=== PATIENT | female | born 1975 | race Caucasian/White ===

== ENCOUNTER 2024-06-24 13:03 | Emergency (ER) | payer OTHER, SELFPAY ==
[2024-06-24] VITALS (7 sets, daily range): BP systolic 130–188; BP diastolic 38–74; PULSE 56–71; RESP 16–18; TEMP 36.8–37.1; O2SAT 98–100; BMI 36.4
--- NOTE | ~2024-06-24 | CT_ITS ---
EXAMINATION: CT HEAD WITHOUT CONTRAST (STROKE PROTOCOL) CLINICAL INFORMATION: Stroke protocol. Difficulty speaking, unsteadiness COMPARISON: None available. TECHNIQUE: Contiguous axial imaging was performed from the skull base to vertex without intravenous administration of contrast. This CT examination was performed using dose optimization techniques as appropriate, variously including the following: *Automated exposure control *Adjustment of mA and/or kV according to patient size (this includes techniques or standardized protocols for targeted exams where dose is matched to indication/reason for exam; i.e. extremities or head) *Use of iterative reconstruction technique FINDINGS: There is no acute intra-axial, extra-axial bleed, masses or midline shift there is no acute infarction evolution. There is no edema. The tarn to white matter differentiation is maintained normal. The lateral ventricles are symmetrical in size and configuration without enlargement. Bone windows reveal no calvarial abnormality. There is mild mucoperiosteal thickening bilateral maxillary, ethmoid, left frontal and sphenoid sinuses. The mastoid air cells are well-aerated. The optic globe, optic nerve and the periorbital soft tissues are normal. CT/CT head for STROKE IMPRESSION: No acute intracranial process seen. This critical result was discussed with Donavon in ED at 1: 26 p.M. It was ascertained that the content and urgency of the report was understood at the time of direct communication. Electronically signed by: Figueroa Cassidy MD 06/24/2024 01:28 PM [facility]
--- NOTE | ~2024-06-24 | CT_ITS ---
EXAMINATION: CTA NECK WITH CONTRAST (STROKE) CTA BRAIN WITH CONTRAST (STROKE) CLINICAL INFORMATION: Suspect acute stroke. Assess for major vessel occlusion. Please call report. COMPARISON: None available. TECHNIQUE: CTA of the head and neck was performed in the axial plane from the mediastinum to the skull vertex using 70 mL Omnipaque 350 intravenous contrast. Additional reformatted multiplanar images including maximum intensity projection MIP images are generated on the CT workstation. This CT examination was performed using dose optimization techniques as appropriate, variously including the following: *Automated exposure control *Adjustment of mA and/or kV according to patient size (this includes techniques or standardized protocols for targeted exams where dose is matched to indication/reason for exam; i.e. extremities or head) *Use of iterative reconstruction technique FINDINGS: The degree of stenosis determined by criteria similar to NASCET. Brain: Postcontrast there is no enhancing mass, edema or midline shift. Chest CTA: The thoracic aorta arch is of normal caliber. There is a three-vessel branching of the aortic arch. Neck CTA: Both common carotid arteries, bulb, bifurcation into anterior and external carotid arteries are widely patent. Bilateral internal carotid arteries throughout the neck are widely patent without any thrombus or dissection. The external carotid arteries and the branches are widely patent as well. Both vertebral arteries are patent at the origin with a dominant right vertebral artery is noted Brain CTA: Bilateral petrous, cavernous and supraclinoid ICA segments of are widely patent. There is normal bifurcation of IVC into anterior middle sacral arteries. 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 The MCA bifurcation bilaterally is normal. There is no thrombus, narrowing or aneurysm suspected. Right vertebral artery continues basilar artery. The left vertebral artery terminates into PICA. The basilar artery is small caliber but terminates into posterior cerebral arteries bilaterally. Visualized bilateral cavernous, superior sagittal, transverse, sigmoid sinuses are widely patent. CT/CT angio head neck STROKE IMPRESSION: Unremarkable CTA neck and brain exam. A dominant right vertebral artery continuing as the basilar artery is noted. Electronically signed by: Figueroa Cassidy MD 06/24/2024 02:03 PM [facility] [place]
--- NOTE | 2024-06-24 13:09 | ECG_ITS ---
Test Reason : WEAKNEESS Blood Pressure : / mmHG Vent. Rate : 058 BPM Atrial Rate : 058 BPM P-R Int : 142 ms QRS Dur : 084 ms QT Int : 412 ms P-R-T Axes : -16 042 050 degrees QTc Int : 404 ms Sinus bradycardia Cannot rule out Anterior infarct , age undetermined Abnormal ECG When compared with ECG of 04-OCT-2007 19:59, No significant change was found Referred By: Terrence Raphael Electronically Signed By:MALGORZATA CASAS MD
--- NOTE | 2024-06-24 13:09 | ED_ITS ---
HPI - General Adult General Chief complaint: Stroke Stated complaint: ?STROKE,WEAK,L HEAVY,SLOW SPEECH,DONOVAN,KNWT 1H,-THINN Time Seen by Provider: 06/24/24 13:09 History of Present Illness ED Provider: Donavon HERNANDEZ narrative: The patient is a 49-year-old woman who was at work today when she started to feel fairly abruptly unwell at around 11:30. She developed a headache associated with nausea. She felt like something was just not quite right. She spoke slower than usual. She felt like she was in a fog. 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 The nurse was concerned and called 911. Paramedics called the case in as a possible stroke alert because the patient was speaking slowly and was complaining of a headache. No fever, sweats, chills. The patient has never had an episode like this before. She says that she has a headache, that she feels nauseated, and she feels as if she is in a fog. She says that she has a general feeling that something is not right. The patient has a history of smoking. She has no history of diabetes or hypertension. She does not know about her cholesterol. Related Data Previous Rx's ?Medication ?Instructions ?Recorded azithromycin 250 mg tablet See Rx Instructions PO .COMPLEX #6 05/12/20 tabs prednisone 20 mg tablet 20 mg PO .COMPLEX #18 tabs 05/12/20 metoclopramide HCl 10 mg tablet 10 mg PO Q6H PRN nausea and 06/24/24 vomiting #12 tabs Allergies Allergy/AdvReac Type Severity Reaction Status Date / Time No Known Allergies Allergy Verified 06/24/24 13:31 [No Known Allergies*] Review of Systems 2 Review of Systems: Yes all other systems are reviewed and are negative [facility] Social History Social History Advance Directives: No Advance Directives Information Provided: Yes Do you have a plan to hurt others: No Plan Physical Exam ED Vital Signs: Vital Signs - 24 hr 06/24/24 13:30 06/24/24 13:45 06/24/24 13:58 Temperature 98.5 F 98.2 F Pulse Rate 59 68 68 Respiratory Rate 18 16 Blood Pressure 156/65 H 130/38 L 130/38 L Pulse Oximetry 98 98 Oxygen Delivery Method Room Air Room Air 06/24/24 14:00 06/24/24 14:01 06/24/24 16:09 Temperature 98.7 F Pulse Rate 71 64 56 Respiratory Rate 16 Blood Pressure 147/74 H 168/61 H 166/67 H Pulse Oximetry 98 Oxygen Delivery Method Room Air BMI result Body Mass Index 36.4 Const Other: The patient is a 49-year-old female who was awake and alert. She responded somewhat slowly to questions but her responses were appropriate. She had a somewhat dazed appearance but did not seem acutely ill otherwise. HENMT Other: Face is symmetrical. Mucous membranes moist. The posterior pharynx is unremarkable. Eyes Other: Pupils are round, equal, and reactive to light. No nystagmus appreciated. Visual huynh are intact to confrontation. Neck Other: Neck is supple. Resp Effort & Inspection: normal respiratory effort Auscultation: clear to auscultation bilaterally Cardio Rate: bradycardic Rhythm: regular rhythm Heart sounds: S1 normal heart sound present and S2 normal heart sound present GI Other: Abdomen is soft and nontender Skin Other: Skin is dry and unremarkable Neuro Other: The patient is awake and alert. She responds slightly slowly but appropriately. She is normally oriented. She does not seem frankly confused. Eye movements are intact. No nystagmus. Visual huynh are intact to confrontation. The face is symmetrical. Speech is slightly slow but without aphasia or dysarthria. Strength is intact in her extremities. There is no pronator drift. Finger-nose is normal. Heel-monzon is normal. No obvious truncal ataxia. Extrem Other: No peripheral edema Medications Administered Discontinued Medications Generic Name Dose Route Start Last Admin Trade Name Freq PRN Reason Stop Dose Admin Diphenhydramine HCl 25 mg 06/24/24 14:19 06/24/24 14:28 Diphenhydramine Hcl 50 Mg/Ml Vial IVPUSH 06/24/24 14:20 25 mg ONCE ONE Administration Sodium Chloride 1,000 mls @ 999 mls/hr 06/24/24 14:00 06/24/24 15:49 Ns IV 06/24/24 15:00 Infused .Q1H1M AUSTEN Infusion Iohexol 100 ml 06/24/24 13:29 06/24/24 13:29 Iohexol 350 Mg/Ml 100 Ml Infus..Btl IV 06/24/24 13:30 70 ml ONCE ONE Administration Ketorolac Tromethamine 10 mg 06/24/24 15:26 06/24/24 16:00 Ketorolac Tromethamine 15 Mg/Ml Vial IVPUSH 06/24/24 15:27 Not Given ONCE ONE Metoclopramide HCl 10 mg 06/24/24 14:19 06/24/24 14:28 Metoclopramide Hcl 10 Mg/2 Ml Vial IVPUSH 06/24/24 14:20 10 mg ONCE ONE Administration Medical Decision Making Medical Decision Making [facility] Narrative: The patient is a 49-year-old female who developed acute symptoms at approximately 11:30AM while at work. She presents complaining of a headache associated with nausea. Speech seemed slow. Her blood pressures were elevated. I saw the patient at triage as the paramedics had called this and has a possible code stroke. Given her headache, a somewhat dazed appearance, and her high blood pressure she was made a code stroke. She had a negative noncontrast head CT and subsequently a negative CT angiogram of the head and neck. Her NIH stroke scale is 0. Given her degree of headache and nausea I had some concern that this might represent a migraine phenomenon. She was given IV diphenhydramine and IV metoclopramide. She had essentially complete resolution of her headache and her nausea and her sense of being in a fog. She seemed to feel much much better with this treatment. Given her response to treatment with diphenhydramine and metoclopramide and IV fluids I suspect this is a migraine phenomenon and I think she may be discharged. She should follow up with her PCP. Lab Data 06/24/24 13:14 06/24/24 14:13 Labs: Lab Results 06/24/24 06/24/24 06/24/24 Range/Units 13:11 13:13 13:14 WBC 8.5 (4.8-10.8) X10*3/uL RBC 4.51 (4.20-5.50) X10*6/uL Hgb 13.1 (12.0-16.0) g/dl Hct 39.3 (37.0-47.0) % MCV 87.1 (80.0-98.0) fL MCH 29.0 (27.0-33.0) pg MCHC 33.3 (31.0-35.0) g/dl RDW 13.8 (11.0-16.0) % Plt Count 302 (160-400) X10*3/uL MPV 9.8 (9.4-12.3) fL Immature Gran % (Auto) 0.2 (0.0-0.4) % Neut % (Auto) 52.0 (45-73) % Lymph % (Auto) 33.7 (20-40) % Winkler % (Auto) 7.6 (2-11) % Eos % (Auto) 5.8 H (0-4) % Baso % (Auto) 0.7 (0-2) % Lymph # (Auto) 2.9 (1.2-4.9) X10*3/uL Winkler # (Auto) 0.7 (0.1-1.2) X10*3/uL Eos # (Auto) 0.5 H (0.0-0.4) X10*3/uL Baso # (Auto) 0.1 (0.0-0.2) X10*3/uL Abs Immat Gran (auto) 0.02 (0.00-0.03) X10*3/uL Absolute Neuts (auto) 4.4 (2.0-8.3) x10*3/uL Absolute Nucleated RBC 0.000 (0.0-0.012) X10*3/uL Nucleated RBC % (auto) 0.0 (0.0-0.2) /100WBC PT 10.0 L (10.9-12.4) SEC Whole Blood PT 12.2 (11.1-13.5) sec INR 0.9 (0.9-1.1) Whole Blood INR 1.0 (0.9-1.1) APTT 35.0 (26.0-36.8) SEC Sodium (135-145) mmol/L Potassium (3.3-5.1) mmol/L Chloride (96-108) mmol/L Carbon Dioxide (22-29) mmol/L Anion Gap (12-20) BUN (9-16) mg/dL Creatinine (0.5-1.4) mg/dL Estim Creat Clear Calc Estimated GFR POC Glucose 78 (60-115) mg/dL Random Glucose (60-115) mg/dL Calcium (8.4-10.2) mg/dL Troponin I High Sens < 2.7 (<3.5-17.0) ng/L Triglycerides (<150) mg/dL Cholesterol (<200) mg/dL LDL Cholesterol, Calc (<100) mg/dL HDL Cholesterol (>40) mg/dL Urine Color Urine Appearance Urine pH (5.0-9.0) Ur Specific [place] (1.005-1.025) Urine Protein (Neg-Trace) mg/dL Urine Glucose (UA) (Negative) mg/dL Urine Ketones (Negative) mg/dL Urine Blood (Negative) Urine Nitrite (Negative) Ur Leukocyte Esterase (Negative) Ethyl Alcohol mg/dL Influenza Type A (PCR) (Negative) Influenza Type B (PCR) (Negative) RSV RNA Qual (PCR) (Negative) SARS-CoV-2 RNA (RT-PCR) (Negative) 06/24/24 06/24/24 06/24/24 Range/Units 14:13 15:07 15:10 WBC (4.8-10.8) X10*3/uL RBC (4.20-5.50) X10*6/uL Hgb (12.0-16.0) g/dl Hct (37.0-47.0) % MCV (80.0-98.0) fL MCH (27.0-33.0) pg MCHC (31.0-35.0) g/dl RDW (11.0-16.0) % Plt Count (160-400) X10*3/uL MPV (9.4-12.3) fL Immature Gran % (Auto) (0.0-0.4) % Neut % (Auto) (45-73) % Lymph % (Auto) (20-40) % Winkler % (Auto) (2-11) % Eos % (Auto) (0-4) % Baso % (Auto) (0-2) % Lymph # (Auto) (1.2-4.9) X10*3/uL Winkler # (Auto) (0.1-1.2) X10*3/uL Eos # (Auto) (0.0-0.4) X10*3/uL Baso # (Auto) (0.0-0.2) X10*3/uL Abs Immat Gran (auto) (0.00-0.03) X10*3/uL Absolute Neuts (auto) (2.0-8.3) x10*3/uL Absolute Nucleated RBC (0.0-0.012) X10*3/uL Nucleated RBC % (auto) (0.0-0.2) /100WBC PT (10.9-12.4) SEC Whole Blood PT (11.1-13.5) sec INR (0.9-1.1) Whole Blood INR (0.9-1.1) APTT (26.0-36.8) SEC Sodium 142 (135-145) mmol/L Potassium 4.0 (3.3-5.1) mmol/L Chloride 107 (96-108) mmol/L Carbon Dioxide 28 (22-29) mmol/L Anion Gap 11 L (12-20) BUN 17 H (9-16) mg/dL Creatinine 0.76 (0.5-1.4) mg/dL Estim Creat Clear Calc 95.0 Estimated GFR > 60 POC Glucose 86 (60-115) mg/dL Random Glucose 89 (60-115) mg/dL Calcium 9.1 (8.4-10.2) mg/dL Troponin I High Sens (<3.5-17.0) ng/L Triglycerides 106 (<150) mg/dL Cholesterol 190 (<200) mg/dL LDL Cholesterol, Calc 112 H (<100) mg/dL HDL Cholesterol 57 (>40) mg/dL Urine Color Yellow Urine Appearance Clear Urine pH 6.5 (5.0-9.0) Ur Specific [place] 1.010 (1.005-1.025) Urine Protein Negative (Neg-Trace) mg/dL Urine Glucose (UA) Negative (Negative) mg/dL Urine Ketones Negative (Negative) mg/dL Urine Blood Negative (Negative) Urine Nitrite Negative (Negative) Ur Leukocyte Esterase Negative (Negative) Ethyl Alcohol < 10 mg/dL Influenza Type A (PCR) NEGATIVE (Negative) Influenza Type B (PCR) NEGATIVE (Negative) RSV RNA Qual (PCR) NEGATIVE (Negative) SARS-CoV-2 RNA (RT-PCR) POSITIVE A (Negative) Independent Interpretation I performed an independent interpretation of an: EKG Interpretation: EKG at 13:38 shows sinus bradycardia at 58 beats per minute. No significant change from previous EKG. Discharge Plan Discharge Clinical Impression: Migraine headache Patient Disposition: Home, Self-Care Instructions: Migraine Headache (ED) Additional Instructions: I believe the symptoms you experienced were most likely a migraine headache. Please rest and take it easy tonight. You may use acetaminophen (Tylenol) or ibuprofen for any residual discomfort. I would eat light tonight. You may drink clear fluids. I have sent a prescription to your pharmacy for a medication for nausea that you may use as needed if you have any ongoing nausea at home. Return to the emergency room if significantly worse. Prescriptions: New metoclopramide HCl 10 mg tablet 10 mg PO Q6H PRN (Reason: nausea and vomiting) Qty: 12 0RF No Action prednisone 20 mg tablet 20 mg PO .COMPLEX Qty: 18 0RF Rx Instructions: 20 mg PO 3 p.o. daily for 3 days followed by 2 p.o. daily for 3 days followed by 1 p.o. daily for 3 days; azithromycin 250 mg tablet See Rx Instructions PO .COMPLEX Qty: 6 0RF Rx Instructions: take 500 mg today (day 1), then 250 mg for 4 days (days 2-5) PO Referrals: [facility] [place] [facility] Group] Stand Alone Forms: Work/School Release Interventions: ED Discharge Assessment Last Done: 06/24/24 16:09 Discharge Date/Time: 06/24/24 16:25 Print Language: Albanian
[2024-06-24 13:18] LABS: MANUAL DIFF FLAG NO
[2024-06-24 13:20] LABS: Prothrombin Time Whole Bld POC 12.2 sec (11.1-13.5)
[2024-06-24 13:21] LABS: Basophils Absolute Auto 0.1 X10*3/uL (0.0-0.2); Basophils Percent Auto 0.7 % (0-2); Eosinophils Absolute Auto 0.5 X10*3/uL (0.0-0.4); Eosinophils Percent Auto 5.8 % (0-4); Hematocrit 39.3 % (37.0-47.0); Hemoglobin 13.1 g/dl (12.0-16.0); Imm Gran Abs Auto 0.02 X10*3/uL (0.00-0.03); Imm Gran Pct Auto 0.2 % (0.0-0.4); Lymphocytes Absolute Auto 2.9 X10*3/uL (1.2-4.9); Lymphocytes Percent Auto 33.7 % (20-40); Mean Corpuscular HGB Conc 33.3 g/dl (31.0-35.0); Mean Corpuscular Volume 87.1 fL (80.0-98.0); Mean Platelet Volume 9.8 fL (9.4-12.3); Monocytes Absolute Auto 0.7 X10*3/uL (0.1-1.2); Monocytes Percent Auto 7.6 % (2-11); Neutrophils Absolute Auto 4.4 x10*3/uL (2.0-8.3); Platelet Count 302 X10*3/uL (160-400); Red Blood Count 4.51 X10*6/uL (4.20-5.50); Red Cell Distribution Width 13.8 % (11.0-16.0); White Blood Count 8.5 X10*3/uL (4.8-10.8)
[2024-06-24 13:21] LABS: Glucose, Whole Blood 78 mg/dL (60-115)
[2024-06-24 13:24] LABS: INTERNATIONAL NORM RATIO 0.9 (0.9-1.1)
[2024-06-24 13:27] LABS: Stroke Lab Use COMPLETE
[2024-06-24] MEDS: iohexoL 350 MG/ML 100 ML INFUS..BTL IV (13:29)
[2024-06-24 13:45] LABS: Troponin-I High Sensitivity < 2.7 ng/L (<3.5-17.0)
--- NOTE | 2024-06-24 14:16 | MHC.STROKE ---
Called to ED for Stroke Alert Pt awake, alert and oriented x 4. Reports feeling weak on the left side and not feeling right . States that she felt dizzy Patient reporting that she was at school and wasn't feeling right. LKWT 1130. States that her left arm felt heavy and she was dizzy. Attempted to drink water and sit down however symptoms did not go away. Pt went to the nurse's office and was told her HR was 51. EMS called. In ED, Pt remained A/O x 4. Hand grasp equal bilaterally, no facial droop appreciated, tongue midline Pt moving legs freely and with equal strength. Speaking in full clear sentences although speech seems slower than normal. CT scans completed. orthostatic vital signs completed. Dr. Raphael at bedside for NIH scale and assessment Pt ambulated in room, slow gait, slightly unsteady. Pt is able to correct herself. Swallow evaluation completed by this RN. Pt passed. Stroke education reviewed with patient and her . All questions answered. Dr. Raphael spoke with Dr. Chow. TNK not indicated at this time. Will continue to assist as needed.
--- NOTE | 2024-06-24 14:22 | MHC.STROKE ---
Risk factors discussed with patient by this RN and Dr. Raphael
[2024-06-24] MEDS: 0.9 % Sodium Chloride 1,000 ML 999 ML IV (14:23)
[2024-06-24] MEDS: diphenhydrAMINE HCL 50 MG/ML VIAL 25 MG IVPUSH (14:28)
[2024-06-24] MEDS: Metoclopramide HCl 10 MG/2 ML VIAL IVPUSH (14:28)
[2024-06-24 14:42] LABS: Anion Gap 11 (12-20); Blood Urea Nitrogen 17 mg/dL (9-16); Calcium 9.1 mg/dL (8.4-10.2); Carbon Dioxide 28 mmol/L (22-29); Chloride 107 mmol/L (96-108); Cholesterol 190 mg/dL (<200); Estimated Glomerular Filt Rate > 60; Ethanol < 10 mg/dL; Glucose Random 89 mg/dL (60-115); HDL Cholesterol 57 mg/dL (>40); LDL Cholesterol Calculated 112 mg/dL (<100); Sodium 142 mmol/L (135-145); Triglycerides 106 mg/dL (<150)
[2024-06-24 15:05] LABS: Influenza A PCR NEGATIVE (Negative); Influenza B PCR NEGATIVE (Negative); Resp Syncy Virus RNA Qual PCR NEGATIVE (Negative); SARS COV2 PCR INHOUSE POSITIVE (Negative)
[2024-06-24 15:14] LABS: Glucose, Whole Blood 86 mg/dL (60-115)
[2024-06-24 15:17] LABS: Appearance Urine Clear; Color Urine Yellow; Glucose Urine UA Negative (Negative); Leukocyte Esterase Urine Negative (Negative); Nitrite Urine Negative (Negative); PH 6.5 (5.0-9.0); Urine Blood Negative (Negative); Urine Ketones Negative (Negative); Urine Protein Negative (Neg-Trace)
== END 2024-06-24 16:25 | disposition home or self-care (01) ==
PROVIDERS: Emergency Provider Emergency Medicine
DX: G43.909 Migraine, unspecified, not intractable, without status migrainosus (principal); R11.2 Nausea with vomiting, unspecified; R00.1 Bradycardia, unspecified; R94.31 Abnormal electrocardiogram [ECG] [EKG]; Z03.818 Encounter for observation for suspected exposure to other biological agents ruled out; Z87.891 Personal history of nicotine dependence; Z51.81 Encounter for therapeutic drug level monitoring; Z79.899 Other long term (current) drug therapy
CPT/HCPCS: 0241U; 36415; 70450; 70496; 70498; 80048; 80061; 80307; 81003; 82947; 84484; 85025; 85610; 85730; 93005; 96361; 96374; 96375; 99284; J1200; J2765; Q9967

== ENCOUNTER → 2024-06-24 13:09 | Outpatient (BNV) | payer OTHER, SELFPAY | PROVIDERS: Emergency Provider Emergency Medicine; Visit Provider Radiology Diagnostic Radiology | DX: I63.9 Cerebral infarction, unspecified (principal) | CPT/HCPCS: 70450; 70496 ==

== ENCOUNTER → 2024-06-24 13:09 | Outpatient (BNV) | payer OTHER, SELFPAY | PROVIDERS: Emergency Provider Emergency Medicine; Visit Provider Internal Medicine Cardiovascular Disease | DX: R94.31 Abnormal electrocardiogram [ECG] [EKG] (principal) | CPT/HCPCS: 93010 ==

== ENCOUNTER 2024-08-09 11:56 | Outpatient (AMB) | payer OTHER, SELFPAY ==
--- NOTE | 2024-08-09 12:00 | MHC.OFFVIS ---
Intake Visit Reasons: Hypertension Allergies No Known Allergies [No Known Allergies*] Allergy (Verified 06/24/24 13:31) Coding
--- NOTE | 2024-08-09 12:04 | A.OFFPC_ITS ---
Vital Signs 08/09/24 12:18 Height 5 ft 3 in Weight 199 lb BMI 35.2 BP 124/80 Blood Pressure Location Rt brachial Position Sitting Respiration 15 Pulse 72 Pulse Source Pulse Oximeter Temp 98.5 F Temp Source Oral Pulse Oximetry (%) 98 Oxygen Delivery Method Room Air Intake Visit Reasons: Hypertension Intake Note: Pt is here today as a New patient to re-est care/Physical Exam Allergies No Known Allergies [No Known Allergies*] Allergy (Verified 08/09/24 12:35) Medication List - Last Reconciled 08/09/24 by Barb Moreno MD No Known Home Meds Tobacco use date assessed: 08/09/24 Dental Screening Dental Screen Date: 08/09/24 Did you have a dental visit in the last 12 months?: Yes Did you have a dental problem in the last 6 months where you did not have access to dental care?: No Was dental information given to patient?: Patient has dentist HPI Hypertension HPI Details 49-year-old lady with history of hyper h ere to reestablish care, and for physical exam. She does not take any medications at present time. Stays active and tries to adhere to a healthy diet. She is overdue to get her colon cancer screening . Goes to [facility] for routine Pap and pelvic exam, up-to-date with her last mammogram done at [facility] in 04/2024. Complains of intermittent pain in her right hip joint, and pain in dose of right foot. This is aggravated walking. No History of trauma. Has not taken anything for the pain Current cigarette smoker with no desire to quit at present time. [facility] Medical History (Updated 08/09/24 @ 13:01 by Barb Moreno MD) Chronic right hip pain Chronic toe pain, right foot Surgical History (Updated 08/16/24 @ 00:33 by Barb Moreno MD) No pertinent past surgical history Family History Mother Substance use disorder Sister Substance use disorder Social History Housing: House Patient Tobacco Use Status: Current everyday Tobacco user e-Cigarette/Vaping Use: Never Used service: No Current occupational status: employed Cognitive needs: No Hearing needs: No Vision needs: Yes Female Reproductive History Menstrual Other: Goes to [facility], sees Dr. Cedillo for her routine Pap and pelvic exam and orders also her mammogram Questionnaire PHQ-9 Over the last 2 weeks, how often have you been bothered by any of the following problems? 1. Little interest or pleasure in doing things: not at all 2. Feeling down, depressed, or hopeless: not at all 3. Trouble falling or staying asleep, or sleeping too much: not at all 4. Feeling tired or having little energy: not at all 5. Poor appetite or overeating: not at all 6. Feeling bad about yourself - or that you are a failure or have let yourself or your family down: not at all 7. Trouble concentrating on things, such as reading the newspaper or watching television: not at all 8. Moving or speaking so slowly that other people could have noticed. Or the opposite - being so fidgety or restless that you have been moving around a lot more than usual: not at all 9. Thoughts that you would be better off or of hurting yourself in some way: not at all Total score: 0 Depression Screening Interpretation: Negative Depression Screening Done: Yes 92790 - PHQ-9 Billing: Yes Source: Developed by Drs. Tomás Benavides, Nicki Davies, David Herrera and colleagues, with an educational geovani from [employer]. Thrive Questionnaire Date Thrive assessed: 08/09/24 I am a: Patient What is your living situation today?: I have a steady place to live Within the past 12 months, did the food you bought not last and you didn't have the money to get more?: Never true Within the past 12 months, did you worry whether your food would run out before you got money to buy more?: Never true Do you have trouble paying for medicines?: No Do you have trouble getting transportation to medical appointments?: No Do you have trouble paying your heating and electricity bill?: No Do you have trouble taking care of your child, family member or friend?: No Do you have trouble with day-to-day activities such as bathing, preparing meals, shopping, managing finances, etc.?: No Are you currently unemployed and looking for a job?: No Are you interested in more education?: No Please select the resources that you would like help with: None Currently or been in a relationship where the following occur: No concerns reported THRIVE Score: 0 AUDIT C Alcohol Use Questionnaire (AUDIT-C) 1. How often do you have a drink containing alcohol?: 2-4 times a month 2. How many drinks containing alcohol do you have on a typical day when you are drinking?: 3 or 4 3. How often do you have six or more drinks on one occasion?: Never Total Score: 3 PAUL-7 AMB Questionnaire PAUL-7 Date PAUL - 7 assessed: 08/09/24 Feeling nervous, anxious, or on edge: 0 = Not at all Not being able to stop or control worryin = Not at all Worrying too much about different things: 0 = Not at all Trouble relaxin = Not at all Being so restless that it is hard to sit still: 0 = Not at all Becoming easily annoyed or irritable: 0 = Not at all Feeling afraid as if something awful might happen: 0 = Not at all Total PAUL-7 score (0-4 normal; 5-9 mild; 10-14 moderate; 15-21 severe): 0 Source: Developed by Drs. Tomás Benavides, Nicki Davies, David Herrera and colleagues, with an educational geovani from [employer]. PAUL-7 Assessment Billing PAUL-7 Assessment Tool: PAUL-7 Assessment 13301 Review of Systems Const Denies body aches, Denies fatigue, Denies fever(s), Denies headache(s) and Denies weakness Eyes Denies change in vision ENT Denies dizziness, Denies headache(s), Denies nasal congestion, Denies nasal discharge and Denies sore throat Card Denies chest pain, Denies lightheadedness, Denies palpitations and Denies dyspnea Resp Denies chest congestion, Denies cough, Denies dyspnea and Denies wheezing GI Denies abdominal pain, Denies change in bowel habits and Denies heartburn Denies hematuria, Denies urinary frequency, Denies dysuria and Denies urinary urgency Musc Reports as per HPI Skin/Breast Denies breast pain, Denies breast mass, Denies lesions and Denies rash Neuro Denies dizziness, Denies headache(s) and Denies weakness Psych Reports no additional complaints Endo Denies fatigue, Denies polydipsia, Denies polyuria and Denies palpitations Simeon/Lymph Denies easy bruising Aller/Immun Denies seasonal rhinorrhea and Denies wheezing Physical exam (Primary Care) Vital Signs: Last Vital Signs Temp 98.5 F 08/09/24 12:18 Pulse 72 08/09/24 12:18 Resp 15 08/09/24 12:18 BP 124/80 08/09/24 12:18 Pulse Ox 98 08/09/24 12:18 Oxygen Delivery Method Room Air 08/09/24 12:18 BMI result Body Mass Index 35.2 Tobacco/Smoking Status: Tobacco use Status Tobacco use date assessed 08/09/24 08/09/24 12:21 Patient Tobacco Use Status Current everyday Tobacco 08/09/24 12:21 e-Cigarette/Vaping Use Never Used 08/09/24 12:21 Are you ready to quit: No Depression Screening Interpretation: Negative Thrive Assessment: Date of Thrive Assessment Date Thrive assessed 08/09/24 08/09/24 12:24 Currently or been in a relationship where the following occur: No concerns reported Advance Care Planning discussion: Completed/Scanned Date of discussion: 08/09/24 Who was present: Patient Forms completed: Health Care Proxy Time spent: 16-45 minutes Actual minutes spent: 3 Const General: no acute distress and alert Orientation/consciousness: patient oriented x3 HENMT Head: Yes normocephalic Ears: external ears normal, TM's normal bilaterally and EAC's normal General nose exam: Normal external nose present Face and sinus: Yes face symmetric Mouth: Normal oral and palatal mucosa present, oropharynx normal and moist mucous membranes Eyes General: appearance normal, both eyes and all related structures Eyelids: Yes eyelids normal Conjunctivae: conjunctivae normal Sclerae: sclerae normal Pupils: Equal, round and reactive pupils present EOM: EOMs intact bilaterally Neck Neck: Yes full ROM, Yes no lymphadenopathy and Yes supple Thyroid: Thyroid normal Chest Chest palpation & inspection: normal inspection of the chest Resp Effort & Inspection: normal respiratory effort and able to speak in complete sentences Auscultation: clear to auscultation bilaterally Cardio Rate: regular rate Rhythm: regular rhythm Heart sounds: S1 normal heart sound present and S2 normal heart sound present GI Palpation (GI): Soft to palpation, nontender, no guarding and no masses Auscultation: normal bowel sounds General: Yes no CVA tenderness Back/Spine/Pelvis Back: no CVA tenderness and No back tenderness Skin General skin exam: no rashes or lesions noted Neuro General: patient oriented x3, gait normal, moves all extremities, Normal light touch and pain sensation, no focal motor deficits and CN's II-XI intact bilaterally Cranial nerves: Yes Equal, round and reactive pupils present Cognition (Neuro): normal cognition Gait exam (Neuro): Normal gait present Motor exam (neuro): 5/5 motor strength present throughout Extrem General: Yes normal to inspection, Yes full ROM, Yes no joint enlargement, Yes no pedal edema and Yes normal gait Right lower extremity: foot Details: normal to inspection and abnormal ROM of toe Psych Appearance: grossly normal and well kempt Mental Status: mental status grossly normal Speech and movement: Normal speech and movement present Affect: normal affect Attitude: cooperative Thought process: Normal thought process present Thought content: Normal thought content present Insight: Good insight present (Psych) Judgement: Good judgement present (Psych) Coding Level of Care Code Est Pt Prev Care 40-64y(17942) Diagnoses Annual visit for general adult medical examination with abnormal findings Z00.01 Encounter for counseling regarding advance directives Z71.89 Encounter for screening for malignant neoplasm of colon Z12.11 Chronic toe pain, right foot M79.674; G89.29 Chronic right hip pain M25.551; G89.29 Additional Codes PHQ-9 - 33857 - PHQ-9 Billing: Yes ([id number]) PAUL-7 Assessment Billing - PAUL-7 Assessment Tool: PAUL-7 Assessment 85067 ([id number]) Vital Signs *Quality* - Advance Care Planning discussion: Completed/Scanned ([id number]) Vital Signs *Quality* - Time spent: 16-45 minutes ([id number]) Assessment & Plan Assessment & Plan (1) Annual visit for general adult medical examination with abnormal findings: Code(s): Z00.01 - Encounter for general adult medical examination with abnormal findings Plan: Reviewed recent fasting labs which showed lipids, fasting glucose, renal function CBC enzymes within limits. Continue with regular dental visit every 6 months and regular eye exams, at least every 2 years. Take adequate calcium in diet and vitamin-D 3 at 2000 IU per cap once a day, in addition to weight- bearing exercises to help maintain good muscle tone and weight control. She goes to [facility] at [facility], due for her cervical cancer screening and pelvic exam with Dr. Cedillo. Up-to-date with her breast cancer screening, last mammogram was done 04/30/2024 with benign finding. Just had COVI D infection 06/24/2024, gets yearly flu shot and COVID vaccine, deferred Tdap recommendation . Referred for her baseline colonoscopy screening to [facility] (2) Encounter for counseling regarding advance directives: Code(s): Z71.89 - Other specified counseling Plan: Initiated the conversation about Advanced Directives. Advanced Directives help patients prepare for current and future decisions about their medical treatment and place of care. Discussed with patient that it is a process where a patients current condition and prognosis are reviewed, their wishes for information regarding their illness are elicited, and likely medical dilemmas are presented and options discussed. Healthcare proxy form completed today The form can be amended as needed, reviewed yearly and make changes as needed (3) Encounter for screening for malignant neoplasm of colon: Code(s): Z12.11 - Encounter for screening for malignant neoplasm of colon Plan: Referred to GI clinic at [place] for her initial colon cancer screening, has positive family history for colon cancer, mother was diagnosed in her 70s with colon cancer (4) Chronic toe pain, right foot: Code(s): M79.674 - Pain in right toe(s); G89.29 - Other chronic pain Category: Medical Plan: X-ray of right toe ordered, referred to [facility] for further evaluation management (5) Chronic right hip pain: Code(s): M25.551 - Pain in right hip; G89.29 - Other chronic pain Category: Medical Plan: X-ray of right hip ordered, referred for physical therapy. If no improvement of symptoms will order an MRI of right hip Orders: Orders XR foot RT min 3V 08/13/24 G89.29 - Other chronic pain, M79.674 - Pain in right toe(s) XR hip RT min 2V 08/13/24 G89.29 - Other chronic pain, M25.551 - Pain in right hip PT Evaluation and Treatment 08/09/24 G89.29 - Other chronic pain, M25.551 - Pain in right hip Referrals Gastroenterology Referral Z00.01 - Encounter for general adult medical examination with abnormal findings, Z12.11 - Encounter for screening for malignant neoplasm of colon, Z71.89 - Other specified counseling Podiatry Referral G89.29 - Other chronic pain, M79.674 - Pain in right toe(s)
[2024-08-09 12:18] VITALS: BP 124/80; PULSE 72; RESP 15; TEMP 36.9; O2SAT 98; BMI 35.2
== END 2024-08-09 13:15 | disposition home or self-care (01) ==
PROVIDERS: Visit Provider Internal Medicine
DX: Z00.01 Encounter for general adult medical examination with abnormal findings (principal); Z71.89 Other specified counseling; Z12.11 Encounter for screening for malignant neoplasm of colon; M79.674 Pain in right toe(s); G89.29 Other chronic pain; M25.551 Pain in right hip

== ENCOUNTER → 2024-08-09 11:56 | Outpatient (BNVA) | payer OTHER, SELFPAY | PROVIDERS: Visit Provider Internal Medicine | DX: Z00.01 Encounter for general adult medical examination with abnormal findings (principal); G89.29 Other chronic pain; M79.674 Pain in right toe(s); M25.551 Pain in right hip; Z71.89 Other specified counseling | CPT/HCPCS: 96127 ==

== ENCOUNTER 2024-08-13 13:53 | Outpatient (REF) | payer OTHER, SELFPAY ==
--- NOTE | ~2024-08-13 | XR_ITS ---
EXAMINATION: XR HIP 2 OR MORE VIEWS RIGHT HISTORY: M25.551 - Pain in right hip COMPARISON: There are no prior studies for comparison. FINDINGS: Two views of the right hip are submitted. Osseous mineralization is normal. There is no fracture or dislocation. The joint space is maintained. The soft tissues are unremarkable. XR/XR hip RT min 2V IMPRESSION: Unremarkable examination of the right hip. Electronically signed by: Tomás Hart MD 08/17/2024 08:27 AM [facility]ANIEL
--- NOTE | ~2024-08-13 | XR_ITS ---
EXAMINATION: XR FOOT 3 OR MORE VIEWS RIGHT HISTORY: M79.674 - Pain in right toe(s) COMPARISON: There are no prior studies available for comparison. FINDINGS: Three views of the right foot are submitted. Osseous mineralization is normal. There is no fracture or dislocation. The joint spaces are preserved. There is a moderate-sized plantar calcaneal spur. The soft tissues are unremarkable. XR/XR foot RT min 3V IMPRESSION: Moderate-sized plantar calcaneal spur. Otherwise unremarkable examination of the right foot. Electronically signed by: Tomás Hart MD 08/17/2024 08:26 AM [facility]
== END 2024-08-13 13:54 | disposition home or self-care (01) ==
LOC: HO.HMGCX 13:53
PROVIDERS: PCP Internal Medicine; Visit Provider Internal Medicine
DX: M79.674 Pain in right toe(s) (principal); M25.551 Pain in right hip; G89.29 Other chronic pain
CPT/HCPCS: 73502; 73630

== ENCOUNTER → 2024-08-13 13:56 | Outpatient (BNV) | payer OTHER, SELFPAY | PROVIDERS: PCP Internal Medicine; Visit Provider Radiology Diagnostic Radiology | DX: M77.31 Calcaneal spur, right foot (principal); M25.551 Pain in right hip | CPT/HCPCS: 73502; 73630 ==

== ENCOUNTER 2024-12-23 14:56 | Outpatient (AMB) | payer OTHER, SELFPAY ==
--- NOTE | 2024-12-23 14:57 | MHC.OFFVIS ---
Vital Signs 12/23/24 15:17 Height 5 ft 3 in Weight 200 lb BMI 35.4 BP 142/78 H Blood Pressure Location Rt brachial Position Sitting Pulse 82 Pulse Source Pulse Oximeter Pulse Oximetry (%) 95 Oxygen Delivery Method Room Air Intake Visit Reasons: Colonoscopy Screening Intake Note: New pt for initial colo screening. CC; Pt denies any GI sx or concerns at this time. Heel Lift Gouger Required: No Accompanied by: Self / Same As Patient Allergies No Known Allergies (No Known Allergies*) Allergy (Verified 12/23/24 15:00) HPI HPI Colonoscopy Screening: Details: 49-year-old female here for preprocedural meeting to discuss a screening colonoscopy. She is referred by Barb Moreno. PMX Hypertension Chronic right hip pain History of L1 compression fracture * SURGICAL HISTORY section Tonsillectomy Lumbar discectomy L5-S1 * ALLERGIES: NKDA * [facility] LABS: Needs chem panel TODAY'S VISIT This her first colonoscopy. Her mother of CRC at age 71. She had trouble with bloating that resolved with a probiotic and fiber supplement, no upper GI problems. She denies any cardiac or respiratory problems. There are no prior problems with anesthesia or sedation. No ID problems. Her mother of CRC at age 71. [facility] Medical History Chronic right hip pain Chronic toe pain, right foot Surgical History History of myringotomy History of section Hx of tonsillectomy Family History Mother Substance use disorder Colon cancer Sister Substance use disorder Social History (System 09/21/24 @ 12:56 by Carol Sifuentes) Housing: House Patient Tobacco Use Status: Current everyday Tobacco user e-Cigarette/Vaping Use: Never Used service: No Current occupational status: employed Cognitive needs: No Hearing needs: No Vision needs: Yes Review of Systems Const Denies fatigue, Denies fever(s), Denies night sweats, Denies poor appetite and Denies weight loss Eyes Reports requires corrective lenses ENT Reports Normal hearing present, Denies dental pain, Denies dysphagia, Denies hearing loss, Denies mouth pain, Denies odynophagia, Denies throat swelling, Denies tongue swelling and Reports other (Dentition adequate) GI Details: Denies abdominal pain, Denies melena, Denies bloating, Denies hematochezia, Denies constipation, Denies GI cramping, Denies dysphagia, Denies excessive flatus, Denies early satiety, Denies heartburn, Denies diarrhea, Denies nausea, Denies odynophagia, Denies vomiting and Denies hematemesis Skin/Breast Denies pruritus, Denies lesions, Denies rash and Denies jaundice Neuro Reports Normal hearing present and Denies Abnormal speech present Endo Denies fatigue Aller/Immun Denies throat swelling and Denies tongue swelling Physical Exam Vital Signs: Last Vital Signs Pulse 82 12/23/24 15:17 BP 142/78 H 12/23/24 15:17 Pulse Ox 95 12/23/24 15:17 Oxygen Delivery Method Room Air 12/23/24 15:17 BMI result Body Mass Index 35.4 Const General: cooperative, no acute distress, well developed and well groomed Nutritional Appearance: well nourished, obese and overweight Orientation/consciousness: oriented to person, oriented to place and oriented to time Limitations: No language barrier, ambulation with cane, ambulation with walker and wheelchair HEENT Head: Yes normocephalic and Yes atraumatic Eyes General: appearance normal, both eyes and all related structures Pupils: Equal, round and reactive pupils present Neck Neck: Yes normal visual inspection and Yes no lymphadenopathy Thyroid: Thyroid normal Resp Effort & Inspection: normal respiratory effort and able to speak in complete sentences Auscultation: clear to auscultation bilaterally Cardio Rate: regular rate Rhythm: regular rhythm Heart sounds: Normal, physiologic split S2 sound present Peripheral pulses: radial pulses present and posterior tibial pulses present GI Inspection: No distended, Yes Abdominal panniculus present and Yes obesity Palpation (GI): Soft to palpation, nontender, no guarding, not rigid and No hepatosplenomegaly present Percussion: Yes normal to percussion Auscultation: normal bowel sounds Rectal Exam - Female: deferred Abdomen image:  1. surgical scar Skin General skin exam: no rashes or lesions noted, turgor normal, skin not dry, no jaundice, No spider nevi and no striae Rashes: no rashes Nails: normal Neuro General: oriented to person, oriented to place and oriented to time Cranial nerves: Yes Equal, round and reactive pupils present and Yes Normal hearing present Speech: No Abnormal speech present Extrem General: Yes normal to inspection, No clubbing, No cyanosis and No edema Psych Appearance: grossly normal and well kempt Mental Status: mental status grossly normal Speech and movement: Normal speech and movement present Affect: normal affect Attitude: cooperative Thought process: Normal thought process present and not confabulating Thought content: Normal thought content present Insight: Good insight present (Psych) Judgement: Good judgement present (Psych) Assessment & Plan Assessment & Plan (1) Pre-op examination: Code(s): Z01.818 - Encounter for other preprocedural examination Category: Medical Plan This her first colonoscopy. Her mother of CRC at age 71. She had trouble with bloating that resolved with a probiotic and fiber supplement, no upper GI problems. She denies any cardiac or respiratory problems. There are no prior problems with anesthesia or sedation. No ID problems. Her mother of CRC at age 71. Orders: Orders Comprehensive Met. Panel Today Z01.818 - Encounter for other preprocedural examination Colonoscopy - GI Use Only Today Z01.818 - Encounter for other preprocedural examination Medications: New peg 3350-electrolytes 236-22.74-6.74 -5.86 gram (Golytely) until fecal effluent is clear; do not exceed a total volume of 2,000 mL 240 mL PO Q10M 4,000 mL 0RF 1 day Z12.11 - Encounter for screening for malignant neoplasm of colon bisacodyl (Dulcolax (bisacodyl)) 10 mg (2 x 5 mg) PO BEDTIME 4 tabs 0RF 2 days Coding Level of Care Code New Pt Level 3 (59190) Diagnoses Pre-op examination Z01.818
[2024-12-23 15:17] VITALS: BP 142/78; PULSE 82; O2SAT 95; BMI 35.4
== END 2024-12-23 15:33 | disposition home or self-care (01) ==
LOC: HO.HGI 14:56
PROVIDERS: PCP Internal Medicine; Visit Provider Nurse Practitioner
DX: Z01.818 Encounter for other preprocedural examination (principal); Z12.11 Encounter for screening for malignant neoplasm of colon
CPT/HCPCS: S0285

== ENCOUNTER 2025-03-28 07:31 | Day surgery (SDC) | payer OTHER, SELFPAY ==
--- OUTSIDE RECORDS SUMMARY | 2025-02-24 10:34 | XMS_ITS | Patient Health Record ---
Author Organization [facility] anabel Venus Address [address] [place] [address] Care Team Providers Care Before And After School Daycare Worker Name Role Phone Tiffanie REY, Barb Villar Primary Care Provider Un available Janell Lamas Unavailable [phone] Allergies No Known Allergies Reason For Referral No Information Immunizations Vaccine Route Administration Date Status Comme nts Influenza Unknown 03/23/2024 Administered Social History Tobacco Use: Social History Observation Description Date Details (start date - stop date) Never Smoker NA - NA Tobacco Control (Standard) Question Answer Notes Tobacco use: Nonsmoker AUDIT-C (Standard) Question Answer Notes Did you have a drink containing alcohol in the p ast year? 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) ([id number]) Cavus deformity of right foot (Q66.71) Active confirmed Vital Signs Blood pressure diastolic 65 mm Hg 01/26/2025 Height 5 ft 3 in in 01/26/2025 Blood pressure systolic 128 mm Hg 01/26/2025 Weight 198 lbs 01/26/2025 BMI 35.07 kg/m2 01/26/2025 Encounters Encounter Location Date Provider Diagnosis [facility] [address] [place] [address] 01/26/2025 Janell Fariaaker Pain in right foot M79.671 ; Cavus deformity of right foot Q66.71 ; Anterior tibial syndrome, 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 ; Right foot drop M21.371 and Tenosynovitis of extensor digitorum longus tendon M65.969 [facility] [place] [address] [place] [address] 01/27/2025 Janell Lamas Assessments Encounter Date Diagnosis (ICD Code) Assessment Notes Treatment Notes Treatment Clinical Notes Section Notes 01/26/2025 Pain in right foot (ICD-10 - M79.671) 01/26/2025 Cavus deformity of right foot (ICD-10 - Q66.71) 01/26/2025 Anterior tibial syndrome, right leg (ICD-10 - M76.811) 01/26/2025 Right foot drop (ICD-10 - M21.371) 01/26/2025 Tenosynovitis of extensor digitorum longus tendon (ICD-10 - M65.969) Plan Of Treatment Pending Test Test Name Order Date X ray : Foot, right 3V 01/26/2025 Next Appt Details Provider Name:Janell Charlton mary anne, 02/28/2025 11:00:00 AM, [address] [place], [address], Insurance Providers Payer Name Payer Address Payer Phone Subscriber Number Group Number Insured Name Patient Relationship to Insured Coverage Start Date Coverage End Date [facility] [address] [place] [id number] [facility] Berta Healy Self - patient is the insured Medical (General) History Medical History History ICD Code Back,Hip,and Knee pain covid-19 Sciatica sinusitis Chicken pox Surgical History Surgery Date(Month/Year) 02/15/2005 discectomy 2019 tonsillectomy and adenoidectomy 1978 Tubes in ears x 8 2001-last
[2025-03-24 14:19] VITALS: BMI 35.4
--- NOTE | 2025-03-25 09:48 | HO.ANESPROP2 ---
Documented by User: Renetta Montelongo NP 03/25/25 09:49 HPI - Anesthesia Eval Consult details Narrative: 50 yr old female for colonoscopy [facility] Active Problems Active Problems: All Active Problems Pre-op examination (Acute) Hypertension (Acute) Chronic right hip pain (Acute) Chronic toe pain, right foot (Acute) Acute sinusitis (Acute) Past Medical History Medical History Chronic right hip pain Chronic toe pain, right foot Family History Family History Mother Substance use disorder Colon cancer Sister Substance use disorder Surgical History Surgical History History of myringotomy History of section Hx of tonsillectomy Social History Social History Housing: House Patient Tobacco Use Status: Current everyday Tobacco user Tobacco use type: Cigarette e-Cigarette/Vaping Use: Never Used Use of substances other than those prescribed or required for medical reasons: No Advance Directives: No Advance Directives Information Provided: Yes service: No Current occupational status: employed Cognitive needs: No Hearing needs: No Vision needs: Yes Meds Allergies Allergy/AdvReac Type Severity Reaction Status Date / Time No Known Allergies (No Known Allergy Verified 12/23/24 15:00 Allergies*) Exam Height,Weight and Vital Signs: Height 5 ft 3 in Weight 90.718 kg Documented by User: Milan Pizano MD 03/28/25 09:04 [facility] Past Medical History Medical History Chronic right hip pain Chronic toe pain, right foot Family History Family History Mother Substance use disorder Colon cancer Sister Substance use disorder Family history of problems with anesthesia: No Surgical History Surgical History History of myringotomy History of section Hx of tonsillectomy History of Problems with Anesthesia: No Social History Social History Housing: House Patient Tobacco Use Status: Current everyday Tobacco user Tobacco use type: Cigarette e-Cigarette/Vaping Use: Never Used Use of substances other than those prescribed or required for medical reasons: No Advance Directives: No Advance Directives Information Provided: Yes service: No Current occupational status: employed Cognitive needs: No Hearing needs: No Vision needs: Yes Meds Allergies Allergy/AdvReac Type Severity Reaction Status Date / Time No Known Allergies (No Known Allergy Verified 12/23/24 15:00 Allergies*) Exam Airway Mallampati Class: IV TM Dist: >3cm Neck ROM: Full Loose/Missing/Broken Teeth: No Heart: RRR Lungs: CTA Assessment and Plan Assessment Anesthesia Assessment: Anesthesia Plan Discussed Final Anesthetic Review Family History of Problems with Anesthesia: No History of Problems with Anesthesia: No NPO: Yes ASA Class: II Patient Risk: Low Procedure Risk: Low Anesthetic Plan Anesthetic Plan: TIVA Disposition: Standard PACU
[2025-03-28 07:46] VITALS: BMI 36.3
[2025-03-28 07:58] VITALS: BP 143/76; PULSE 60; RESP 16; TEMP 36.6; O2SAT 96
[2025-03-28] MEDS: Lactated Ringers 1,000 ML 100 ML IVCONT (07:59)
--- NOTE | 2025-03-28 08:32 | MHC.SHP ---
Pre-Procedural Eval Section A - 24 Hr Update-Section A only Date of Service: 03/28/25 Section B - Complete if H&P > 30 days Chief Complaint: screening Relevant Family History (Specify if Yes): Yes Relevant Social History: Tobacco Use Present Medications: see Short Stay Collaborative assessment Medical History: Significant History (Chronic right hip pain Chronic toe pain, right foot) History of Previous Operations: Relevant previous surgery/procedure and date(s) (History of myringotomy History of section Hx of tonsillectomy) Allergies: Allergies Allergy/AdvReac Type Severity Reaction Status Date / Time No Known Allergies (No Known Allergy Verified 12/23/24 15:00 Allergies*) Review of Systems Sugical H&P ROS: Negative: Constitution, Cardiovascular, Respiratory, Neurological, Psychiatric, Hem-Onc, Allergic/Immunologic, Gastrointestinal, Genitourinary, Musculoskeletal, Integumentary, Endocrine and Eyes/Ears/Nose/Throat Exam Surgical H&P Exam: Normal: HEENT, Normal: Heart, Normal: Lungs, Normal: Extremities, Normal: Abdomen, Normal: Skin and Normal: Neurological Plan Diagnosis/Plan: Unchanged I have reviewed the history and physical and performed a pertinent physical examination on my patient. No changes have occurred unless specified. Time Spent With Patient Time: Total time managing care of this patient today ____ minutes.
--- NOTE | 2025-03-28 09:28 | HO.OPN-COLON ---
Colonoscopy Operative Note Operative Note Date of Service: 03/28/25 Narrative: Operative Information Procedure Description: Colonoscopy Indication: screening, FH of CRC mother Anesthesia: MAC COLONOSCOPY Instrument: Olympus variable stiffness pediatric scope 190L Colonoscopy Monitoring: Vital signs and clinical assessment, continuous EKG monitoring, Pulse oximetry, Carbon Dioxide monitoring and blood pressure monitoring were done throughout the procedure. Colon withdrawal time was 6 minutes. Procedure: The patient was placed in the left lateral decubitis position and pre-procedure medications were administered. After a digital rectal examination of the ano-rectum, the video colonoscope was inserted into the rectum and advanced through the colon to the cecum/TI. The colonoscope was slowly withdrawn in a retrograde panoramic fashion and the colon mucosa was carefully examined including a retroflexed view of the rectum. Findings and interventions are described below. Procedure Difficulty: easy Findings: Terminal Ileum-normal Cecum:normal Right sided retroflexion- normal Ascending Colon: normal Transverse Colon -normal Descending Colon:normal Sigmoid Colon: moderate diverticulosis Rectum: Retroflexion with small internal hemorrhoids seen, grade I Anorectum - normal Intervention: none Colon preparation: [place] Bowel Preparation Scale Right colon; 2 Transverse colon: 2 Left colon; 2 (0 = Unprepared colon segment with mucosa not seen due to solid stool that cannot be cleared. 1 = Portion of mucosa of the colon segment seen, but other areas of the colon segment not well seen due to staining, residual stool and/or opaque liquid. 2 = Minor amount of residual staining, small fragments of stool and/or opaque liquid, but mucosa of colon segment seen well. 3 = Entire mucosa of colon segment seen well with no residual staining, small fragments of stool or opaque liquid) Impression and Post Procedure Diagnosis: diverticulosis internal hemorrhoids Plan: High fiber diet leaflet Avoid straining at stool, epsom salts and sitz bath, anusol supps or cream Repeat Colonoscopy in 5 years due to FH of CRC or earlier if clinically indicated Above findings were reviewed with the patient and relevant handouts were provided if indicated.
[2025-03-28 09:35] VITALS: BP 127/66; PULSE 64; RESP 20; TEMP 36.5; O2SAT 100
[2025-03-28 09:50] VITALS: BP 132/72; PULSE 72; RESP 18; TEMP 36.2; O2SAT 100
== END 2025-03-28 10:43 | disposition home or self-care (01) ==
PROVIDERS: PCP Internal Medicine; Visit Provider Internal Medicine Gastroenterology
PROC: 0DJD8ZZ Inspection of Lower Intestinal Tract, Via Natural or Artificial Opening Endoscopic (ICD-10-PCS; CPT 45378; principal; 2025-03-28 09:20)
DX: Z12.11 Encounter for screening for malignant neoplasm of colon (principal); K57.30 Diverticulosis of large intestine without perforation or abscess without bleeding; K64.0 First degree hemorrhoids; Z80.0 Family history of malignant neoplasm of digestive organs; I10 Essential (primary) hypertension
CPT/HCPCS: 45378; J2003; J2704

== ENCOUNTER → 2025-03-28 07:31 | Outpatient (BNV) | payer OTHER, SELFPAY | PROVIDERS: PCP Internal Medicine; Visit Provider Internal Medicine Gastroenterology | DX: Z12.11 Encounter for screening for malignant neoplasm of colon (principal); Z80.0 Family history of malignant neoplasm of digestive organs; K57.30 Diverticulosis of large intestine without perforation or abscess without bleeding; K64.0 First degree hemorrhoids | CPT/HCPCS: 45378 ==